=== PATIENT | female | born 1990 | race Caucasian/White ===

== ENCOUNTER 2018-02-25 20:05 | Emergency (ER) | payer SELFPAY ==
[~2018-02-25] VITALS: Ht 170.2 cm; Wt 101.6 kg
[2018-02-25 21:21] VITALS: BP 170/99
== END 2018-02-25 21:21 | disposition home or self-care (01) ==
LOC: ED 20:05
DX: Z46.6 Encounter for fitting and adjustment of urinary device (principal); Z98.890 Other specified postprocedural states